=== PATIENT | female | born 1975 | race Caucasian/White ===

== ENCOUNTER 2024-11-14 21:47 | Emergency (ER) | payer MEDICAID ==
[~2024-11-14] VITALS: Ht 160 cm; Wt 76.6 kg
[2024-11-14 22:16] VITALS: O2SAT 99
[2024-11-14 22:20] VITALS: RESP 20
[2024-11-14 22:40] LABS: BASOPHILS % 0.6 % (0.0-2.0); EOSINOPHILS % 1.3 % (0.0-5.0); HEMATOCRIT. 39.3 % (36.0-48.0); HEMOGLOBIN. 12.2 g/dL (12.0-16.0); LYMPHOCYTES % 15.2 % (20.0-50.0); MEAN PLATELET VOLUME 8.8 fl (7.4-10.4); MONOCYTES % 7.7 % (2.0-8.0); NEUTROPHILS % 75.2 % (40.0-76.0); PLATELET 534 x1000/uL (130-400); RED BLOOD CELL COUNT 4.91 mill/uL (4.2-5.4); RED CELL DISTRIBUTION WIDTH 22.4 % (11.6-14.6)
[2024-11-14 22:41] LABS: ADD RBC MORPHOLOGY YES
[2024-11-14 22:55] LABS: PLATELET ESTIMATE MARKEDLY INCREASED
[2024-11-14 22:56] LABS: CREATININE 0.8 mg/dL (0.6-1.0); UREA NITROGEN BLOOD 18 mg/dL (9-23)
[2024-11-14] MEDS: ACETAMINOPHEN 325MG TABLET PO ONE (23:25)
[2024-11-15] MEDS: HYDROCHLOROTHIAZIDE 12.5MG CAPSULE PO ONE (01:35)
[2024-11-15 01:36] VITALS: BP 176/79; PULSE 86; TEMP 37.2; O2SAT 99
[2024-11-15] MEDS ORDERED: ACET-2708 MT (02:08)
== END 2024-11-15 02:22 | disposition home or self-care (01) ==
LOC: ER 21:47
DX: S09.8XXA Other specified injuries of head, initial encounter (principal); M25.562 Pain in left knee; I10 Essential (primary) hypertension; E11.65 Type 2 diabetes mellitus with hyperglycemia; Z86.73 Personal history of transient ischemic attack (TIA), and cerebral infarction without residual deficits; W01.0XXA Fall on same level from slipping, tripping and stumbling without subsequent striking against object, initial encounter; Y93.01 Activity, walking, marching and hiking; Y92.89 Other specified places as the place of occurrence of the external cause; Y99.8 Other external cause status
CPT/HCPCS: 80048; 85025; 36415; 73562; 99284; 70450; Z7610 ×3; A6449; A4606